=== PATIENT | female | born 1970 | race Hispanic/Latino ===

== ENCOUNTER 2016-10-24 14:25 | Observation (INO) | payer MEDICAID, OTHER ==
[2016-10-24 14:37] VITALS: BMI 23.0
[2016-10-24] MEDS ORDERED: Sodium Chloride 0.9% 1,000 ML IV STA (14:42)
--- NOTE | 2016-10-24 14:52 | ED PDOC ---
Arrival/HPI - General Historian: Patient - History of Present Illness Time/Duration: Other (since this morning) Context: Home - General Chief Complaint: GI Problem Time Seen by Provider: 10/24/16 14:42 - History of Present Illness Narrative History of Present Illness (Text): 10/24/16 14:49 This 46 yo female without significant medical history, presents to this ED c/o nausea, vomiting, diarrhea since this morning. Patient admits drinking green tea last night. Patient admits similar symptoms "years ago", after drinking green tea. Patient admits a generalized abdominal pain. Denies urinary symptoms, vaginal discharge, or vaginal bleeding. (Alannah Corrales) Past Medical History - Provider Review Nursing Documentation Reviewed: Yes - Infectious Disease Hx of Infectious Diseases: None - Tetanus Immunization Tetanus Immunization: Unknown - Past Medical History Past Medical History: No Previous - Psychiatric Hx Psychophysiologic Disorder: No Hx Anxiety: Yes Hx Bipolar Disorder: No Hx Depression: No Hx Emotional Abuse: No Hx Hallucinations: No Hx Panic Disorder: No Hx Post Traumatic Stress Disorder: No Hx Psychosis: No Hx Physical Abuse: No Hx Schizophrenia: No Hx Sexual Abuse: No Hx Substance Use: Yes (CANNABIS USE 10/23) Other/Comment: Prior ETOH abuse. - Surgical History Other/Comment: VAginal cyst surgery - Anesthesia Hx Anesthesia: Yes - Suicidal Assessment Feels Threatened In Home Enviroment: No Family/Social History - Physician Review Nursing Documentation Reviewed: Yes Family/Social History: No Known Family HX Smoking Status: Never Smoked Hx Alcohol Use: Yes (Stopped drinking 3 yrs ago) Hx Substance Use: Yes (CANNABIS USE 10/23) Hx Substance Use Treatment: No Allergies/Home Meds Allergies/Adverse Reactions: Allergies No Known Allergies Allergy (Verified 10/24/16 14:37) Home Medications: Home Meds Medication Instructions Recorded Confirmed No Known Home Med [No Known Home 09/08/14 09/08/14 Med] Review of Systems - Review of Systems Constitutional: Normal. absent: Fatigue, Weight Change, Fevers Eyes: Normal ENT: Normal Respiratory: Normal. absent: SOB, Cough Cardiovascular: Normal Gastrointestinal: Abdominal Pain, Diarrhea, Nausea, Vomiting Genitourinary Female: Normal. absent: Dysuria, Frequency, Hematuria, Vaginal Bleeding, Vaginal Discharge Musculoskeletal: Normal. absent: Back Pain Skin: Normal Neurological: Normal Endocrine: Normal Hemo/Lymphatic: Normal Psychiatric: Normal Physical Exam Temperature: Afebrile Blood Pressure: Normal Pulse: Regular Respiratory Rate: Normal Appearance: Positive for: Well-Appearing, Non-Toxic, Comfortable Pain Distress: None Mental Status: Positive for: Alert and Oriented X 3 - Systems Exam Head: Present: Atraumatic, Normocephalic Pupils: Present: PERRL Extroacular Muscles: Present: EOMI Conjunctiva: Present: Normal Mouth: Present: Moist Mucous Membranes Neck: Present: Normal Range of Motion Respiratory/Chest: Present: Clear to Auscultation, Good Air Exchange. No: Respiratory Distress, Accessory Muscle Use Cardiovascular: Present: Regular Rate and Rhythm, Normal S1, S2. No: Murmurs Abdomen: Present: Normal Bowel Sounds. No: Tenderness, Distention, Peritoneal Signs, Rebound, Guarding Back: Present: Normal Inspection. No: CVA Tenderness Upper Extremity: Present: Normal Inspection, Normal ROM, NORMAL PULSES, Neurovascularly Intact, Capillary Refill < 2s. No: Cyanosis, Edema Lower Extremity: Present: Normal Inspection, NORMAL PULSES, Deformity, Capillary Refill < 2 s. No: Edema, CALF TENDERNESS Neurological: Present: GCS=15, CN II-XII Intact, Speech Normal, Motor Func Grossly Intact, Normal Sensory Function, Normal Cerebellar Funct, Gait Normal Skin: Present: Warm, Dry, Normal Color. No: Rashes Psychiatric: Present: Alert, Oriented x 3, Normal Insight, Normal Concentration Vital Signs Temp Pulse Resp BP Pulse Ox 10/24/16 17:03 70 18 132/78 100 10/24/16 14:26 97.6 F 82 22 113/51 L 100 Medical Decision Making Re-evaluation Time: 17:51 Reassessment Condition: Re-examined, Improving,but remains with symptoms - Lab Interpretations I have reviewed the lab results: Yes Interpretation: Abnormal lab values (leukocytosis, cystitis?) ED Course and Treatment: I was available for consultation during PA evaluation. The chart was reviewed by me, and I agree with disposition. The documented history was done by the physician copy director. The documented physical exam was done by the physician copy director. The documented procedures were done by the physician copy director. ( Maciej Matute) 10/24/16 17:40 Patient stated she feel nauseous, and she feels chills. Patient stated she does not feel "right". I will contact hospitalist. 10/24/16 17:46 I spoke with electromedical equipment repairer regarding symptoms. He recommended to call Hospitalist. 10/24/16 17:[address] Perez Hospitalist, who agrees with plan for admission. ( Alannah Corrales) - Lab Interpretations Lab Results: 10/24/16 14:45 10/24/16 14:45 Lab Results 10/24/16 14:55: Urine Color Yellow, Urine Appearance Sl cloudy, Urine pH 8.0, Ur Specific [place] 1.025, Urine Protein 30 H, Urine Glucose (UA) Negative, Urine Ketones Trace H, Urine Blood Large H, Urine Nitrate Negative, Urine Bilirubin Negative, Urine Urobilinogen 0.2, Ur Leukocyte Esterase Negative, Urine RBC 5 - 10, Urine WBC 2 - 5, Ur Epithelial Cells Many, Urine Bacteria Mod , Urine HCG, Qual Negative 10/24/16 14:45: Sodium 135, Potassium 4.0, Chloride 103, Carbon Dioxide 18 L, Anion Gap 18, BUN 16, Creatinine 0.7, Est GFR ( Amer) > 60, Est GFR (Non- Af Amer) > 60, Random Glucose 111 H, Calcium 9.5, Total Bilirubin 0.5, AST 102 H , ALT 89 H, Alkaline Phosphatase 65, Total Protein 7.5, Albumin 4.6, Globulin 2.9, Albumin/Globulin Ratio 1.6, Lipase 96 10/24/16 14:45: WBC 16.8 H D, RBC 3.93, Hgb 12.8, Hct 37.0, MCV 94.1, MCH 32.6, MCHC 34.6, RDW 12.2, Plt Count 354, MPV 10.0, Gran % 88.6 H, Lymph % (Auto) 6.4 L, [place] % (Auto) 4.9, Eos % (Auto) 0.0 L, Baso % (Auto) 0.1, Gran # 14.87 H, Lymph # 1.1 L, [place] # 0.8 H, Eos # 0.0, Baso # 0.02 - RAD Interpretation Narrative RAD Interpretations (Text): 10/24/16 17:21 Accession No. : [id number] Patient Name / ID : ASHER SOW / [id number] Exam Date : 10/24/2016 16:31:39 ( Approved ) Study Comment : Sex / Age : F / 46Y Creator : Oz Edgar MD Dictator : Oz Edgar MD Portfolio Accountant : Ironer : Oz Edgar MD Approver2 : Report Date : 10/24/2016 17:05:50 My Comment : PROCEDURE: CT Abdomen and Pelvis with contrast HISTORY: Abdominal pain. By history, negative test (concurrent with this examination). COMPARISON: None. TECHNIQUE: Contrast dose: 100 cc Omnipaque 350. Radiation dose: Total exam DLP = 328.37 mGy-cm. This CT exam was performed using one or more of the following dose reduction techniques: Automated exposure control, adjustment of the mA and/or kV according to patient size, and/or use of iterative reconstruction technique. FINDINGS: LOWER THORAX: Unremarkable. LIVER: Hepatic steatosis. No focal masses. No intrahepatic bile duct dilatation or perihepatic ascites. There is periportal edema, nonspecific finding. GALLBLADDER AND BILE DUCTS: Cholelithiasis without CT evidence of acute cholecystitis. PANCREAS: Unremarkable. No gross lesion or ductal dilatation. SPLEEN: Unremarkable. ADRENALS: Unremarkable. No mass. KIDNEYS AND URETERS: Unremarkable. No hydronephrosis. No solid mass. VASCULATURE: Unremarkable. No aortic aneurysm. BOWEL: The colon is fluid-filled without mechanical obstruction. APPENDIX: Normal appendix. PERITONEUM: Trace free fluid identified in the pelvis/cul de sac.. No free air. LYMPH NODES: Unremarkable. No enlarged lymph nodes. BLADDER: Unremarkable. REPRODUCTIVE: Unremarkable. BONES: No acute fracture. OTHER FINDINGS: None. IMPRESSION: Cholelithiasis without CT evidence of acute cholecystitis. (Alannah Corrales) Radiology Orders: 10/24/16 15:28 ABD & PELVIS IV CONTRAST ONLY [CT] Stat - Medication Orders Current Medication Orders: Ondansetron HCl (Zofran Inj) 4 mg IVP STAT STA Stop: 10/24/16 17:46 Discontinued Medications Alprazolam (Xanax) 0.5 mg PO STAT STA PRN Reason: Protocol Stop: 10/24/16 15:24 Last Admin: 10/24/16 15:53 Dose: 0.5 mg Diphenhydramine HCl (Benadryl) 25 mg IVP STAT STA Stop: 10/24/16 17:36 Famotidine (Pepcid) 20 mg IVP STAT STA Stop: 10/24/16 14:49 Last Admin: 10/24/16 14:58 Dose: 20 mg Sodium Chloride (Sodium Chloride 0.9%) 1,000 mls @ 999 mls/hr IV .Q1H1M STA Stop: 10/24/16 15:42 Last Admin: 10/24/16 14:52 Dose: 999 mls/hr Iohexol (Omnipaque 350 100 Ml) Confirm Administered Dose 350 mg .ROUTE .STK-MED ONE Stop: 10/24/16 15:49 Metoclopramide HCl (Reglan) 10 mg IVP STAT STA Stop: 10/24/16 15:16 Last Admin: 10/24/16 15:33 Dose: 10 mg Ondansetron HCl (Zofran Inj) 4 mg IVP STAT STA Stop: 10/24/16 14:43 Last Admin: 10/24/16 14:58 Dose: 4 mg Disposition/Present on Arrival - Present on Arrival Any Indicators Present on Arrival: No History of DVT/PE: No History of Uncontrolled Diabetes: No Urinary Catheter: No History of Decub. Ulcer: No History Surgical Site Infection Following: None - Disposition Have Diagnosis and Disposition been Completed?: Yes Disposition Time: 17:52 Patient Plan: Admission - Disposition Diagnosis: Intractable vomiting with nausea, Abdominal pain Disposition: HOSPITALIZED Condition: GOOD Referrals: PCP,NO [Primary Care Provider] - Follow up with primary
[2016-10-24 14:53] LABS: ADD MANUAL DIFF? NO
[2016-10-24 14:56] LABS: BASO # 0.02 K/mm3 (0.0-2.0); BASO % 0.1 % (0.0-3.0); GRAN # 14.87 (1.4-6.5); GRAN % 88.6 % (50.0-68.0); LYMPH # 1.1 (1.2-3.4); LYMPH % 6.4 % (22.0-35.0); MEAN CELL VOLUME 94.1 fL (80.0-105.0); MEAN CORPUSCULAR HEMOGLOBIN 32.6 pg (25.0-35.0); MEAN CORPUSCULAR HGB CONC 34.6 g/dl (31.0-37.0); MONO # 0.8 (0.1-0.6); MONO % 4.9 % (1.0-6.0); PLATELET COUNT 354 10^3/uL (120.0-450.0); RED CELL DISTRIBUTION WIDTH 12.2 % (11.5-14.5); WHITE BLOOD COUNT 16.8 10^3/ul (4.5-11.0)
[2016-10-24 15:07] LABS: ALB/GLOB RATIO 1.6 (1.1-1.8); ALKALINE PHOSPHATASE 65 U/L (38-133); ALT/SGPT 89 U/L (7-56); AST/SGOT 102 U/L (15-39); BILIRUBIN,TOTAL 0.5 mg/dL (0.2-1.3); BLOOD UREA NITROGEN 16 mg/dL (7-21); CALCIUM 9.5 mg/dL (8.4-10.5); CARBON DIOXIDE 18 mmol/L (21-33); CHLORIDE 103 mmol/L (98-107); GFR AFRICAN-AMERICAN > 60; GLUCOSE,RANDOM 111 mg/dL (70-110); LIPASE 96 U/L (23-300); SODIUM 135 mmol/L (132-148); TOTAL PROTEIN 7.5 g/dL (5.8-8.3)
[2016-10-24 15:20] LABS: URINE BILIRUBIN NEGATIVE (NEGATIVE); URINE BLOOD LARGE (NEGATIVE); URINE GLUCOSE (UA) NEGATIVE (NEGATIVE); URINE KETONE TRACE mg/dL (NEGATIVE); URINE LEUKOCYTE ESTERASE NEGATIVE Leu/uL (NEGATIVE); URINE PROTEIN 30 mg/dL (<30 mg/dL); URINE UROBILINOGEN 0.2 E.U./dL (<1 E.U./dL)
[2016-10-24 15:25] LABS: URINE APPEARANCE SL CLOUDY (CLEAR); URINE COLOR YELLOW (YELLOW)
[2016-10-24 15:39] LABS: URINE BACTERIA MOD (NEG); URINE EPITHELIAL CELLS MANY /hpf (0-5)
[2016-10-24] MEDS ORDERED: Iohexol 350 MG/100 ML VIAL ONE (15:48)
--- NOTE | 2016-10-24 17:07 | CT ---
PROCEDURE: CT Abdomen and Pelvis with contrast HISTORY: Abdominal pain. By history, negative test (concurrent with this examination). COMPARISON: None. TECHNIQUE: Contrast dose: 100 cc Omnipaque 350. Radiation dose: Total exam DLP = 328.37 mGy-cm. This CT exam was performed using one or more of the following dose reduction techniques: Automated exposure control, adjustment of the mA and/or kV according to patient size, and/or use of iterative reconstruction technique. FINDINGS: LOWER THORAX: Unremarkable. LIVER: Hepatic steatosis. No focal masses. No intrahepatic bile duct dilatation or perihepatic ascites. There is periportal edema, nonspecific finding. GALLBLADDER AND BILE DUCTS: Cholelithiasis without CT evidence of acute cholecystitis. PANCREAS: Unremarkable. No gross lesion or ductal dilatation. SPLEEN: Unremarkable. ADRENALS: Unremarkable. No mass. KIDNEYS AND URETERS: Unremarkable. No hydronephrosis. No solid mass. VASCULATURE: Unremarkable. No aortic aneurysm. BOWEL: The colon is fluid-filled without mechanical obstruction. APPENDIX: Normal appendix. PERITONEUM: Trace free fluid identified in the pelvis/cul de sac.. No free air. LYMPH NODES: Unremarkable. No enlarged lymph nodes. BLADDER: Unremarkable. REPRODUCTIVE: Unremarkable. BONES: No acute fracture. OTHER FINDINGS: None. IMPRESSION: Cholelithiasis without CT evidence of acute cholecystitis.
[2016-10-24] MEDS ORDERED: DiphenhydrAMINE 50 mg/ml Inj IVP STA (17:35)
[2016-10-24] MEDS ORDERED: cefTRIAXone 1 gm 1 GM/100 ML BAG IVPB STA (17:50)
[2016-10-24] MEDS ORDERED: metroNIDAZOLE IV 500 mg/100 ml 500 MG/100 ML BAG IVPB STA (17:51)
--- NOTE | 2016-10-24 17:54 | CP.PCM.HP ---
<Pennie Murillo - Last Filed: 10/24/16 18:19> History of Present Illness - History of Present Illness History of Present Illness: Pt is a 46 F with PMHx of anxiety and etoh abuse presenting to [facility] ED with complaints of intractable nausea and vomitting. Pt attributes her current symptoms to the green tea that she drank yesterday. She states that she began drinking the green tea during the day and continued into the night her last cup being at approx 9pm. Pt awoke this morning had black coffee and then subsequently experienced loose bm and then began to feel nauseous and began vomitting. Pt states that she had approx 8-9 loose bm throughout the day today and similarly vomitted approx 8 -10 times. Her emesis went from clear to bilious in nature. She denied any bloody bm however she noted that she is currently on her period and has been spotting intermittently. Pt admits to chills, shoulder/chest discomfort (similar to the discomfort she experienced when she had panic attacks), n/v/d. She denied fever, sob, palpitations, abdominal pains, or urinary symptoms. PMHx: Anxiety, Etoh abuse PSHx: Tubal ligation, vaginal cyst removal SHx: denied tobacco use, quite etoh approx 2011, admits to marijuana use, last used on 10/23/16 Famhx: noncontributory Meds MAR reviewed Allergies: NKDA No PMD Present on Admission - Present on Admission Any Indicators Present on Admission: No Review of Systems - Review of Systems Review of Systems: as per HPI otherwise negative Past Patient History - Infectious Disease Hx of Infectious Diseases: None - Tetanus Immunizations Tetanus Immunization: Unknown - Past Social History Smoking Status: Never Smoked - PSYCHIATRIC Hx Psychophysiologic Disorder: No Hx Anxiety: Yes Hx Bipolar Disorder: No Hx Depression: No Hx Emotional Abuse: No Hx Hallucinations: No Hx Panic Symptoms: No Hx Post Traumatic Stress Disorder: No Hx Psychosis: No Hx Physical Abuse: No Hx Schizophrenia: No Hx Sexual Abuse: No Hx Substance Use: Yes (CANNABIS USE 10/23) Other/Comment: Prior ETOH abuse. - SURGICAL HISTORY Other/Comment: VAginal cyst surgery - ANESTHESIA Hx Anesthesia: Yes Meds Allergies/Adverse Reactions: Allergies Allergy/AdvReac Type Severity Reaction Status Date / Time No Known Allergies Allergy Verified 10/24/16 14:37 Physical Exam - Constitutional Appears: No Acute Distress - Head Exam Head Exam: ATRAUMATIC, NORMAL INSPECTION, NORMOCEPHALIC - Eye Exam Eye Exam: EOMI, Normal appearance, PERRL Pupil Exam: NORMAL ACCOMODATION, PERRL - ENT Exam ENT Exam: Mucous Membranes Moist, Normal Exam - Neck Exam Neck exam: Positive for: Normal Inspection - Respiratory Exam Respiratory Exam: Clear to Auscultation Bilateral, NORMAL BREATHING PATTERN - Cardiovascular Exam Cardiovascular Exam: REGULAR RHYTHM, +S1, +S2 - GI/Abdominal Exam GI & Abdominal Exam: Normal Bowel Sounds, Soft. absent: Tenderness - Extremities Exam Extremities exam: Positive for: normal inspection - Back Exam Back exam: NORMAL INSPECTION - Neurological Exam Neurological exam: Alert, CN II-XII Intact, Normal Gait, Oriented x3, Reflexes Normal - Psychiatric Exam Psychiatric exam: Normal Affect, Normal Mood - Skin Skin Exam: Dry, Intact, Normal Color, Warm Results - Vital Signs Recent Vital Signs: Last Vital Signs Temp 97.6 F 10/24/16 14:26 Pulse 70 10/24/16 17:03 Resp 18 10/24/16 17:03 BP 132/78 10/24/16 17:03 Pulse Ox 100 10/24/16 17:03 - Labs Result Diagrams: 10/24/16 14:45 10/24/16 14:45 Labs: Laboratory Results - last 24 hr 10/24/16 10/24/16 10/24/16 14:45 14:45 14:55 WBC 16.8 H D RBC 3.93 Hgb 12.8 Hct 37.0 MCV 94.1 MCH 32.6 MCHC 34.6 RDW 12.2 Plt Count 354 MPV 10.0 Gran % 88.6 H Lymph % (Auto) 6.4 L [place] % (Auto) 4.9 Eos % (Auto) 0.0 L Baso % (Auto) 0.1 Gran # 14.87 H Lymph # 1.1 L [place] # 0.8 H Eos # 0.0 Baso # 0.02 Sodium 135 Potassium 4.0 Chloride 103 Carbon Dioxide 18 L Anion Gap 18 BUN 16 Creatinine 0.7 Est GFR ( Amer) > 60 Est GFR (Non-Af Amer) > 60 Random Glucose 111 H Calcium 9.5 Total Bilirubin 0.5 AST 102 H ALT 89 H Alkaline Phosphatase 65 Total Protein 7.5 Albumin 4.6 Globulin 2.9 Albumin/Globulin Ratio 1.6 Lipase 96 Urine Color Yellow Urine Appearance Sl cloudy Urine pH 8.0 Ur Specific [place] 1.025 Urine Protein 30 H Urine Glucose (UA) Negative Urine Ketones Trace H Urine Blood Large H Urine Nitrate Negative Urine Bilirubin Negative Urine Urobilinogen 0.2 Ur Leukocyte Esterase Negative Urine RBC 5 - 10 Urine WBC 2 - 5 Ur Epithelial Cells Many Urine Bacteria Mod Urine HCG, Qual Negative Assessment & Plan - Assessment and Plan (Free Text) Assessment: Pt is a 46 F with PMHx of anxiety and etoh abuse presenting to [facility] ED with complaints of intractable nausea and vomitting admitted for possible gastroenteritis. 1. Intractable Nausea vomitting - CT abd unremarkable for any acute pathology - IVF - Zofran - Rocephin - Flagyl - Stool cx - NPO - Will observe and reassess, consult GI if necessary 2. Anxiety - ativan 0.5 iv q4 prn 3. Hx substance abuse - tox screen - ETOH levels 4. GI DVT ppx : Protonix and scds seen reviewed and discussed with attending <Manas Perez - Last Filed: 10/25/16 13:51> Results - Vital Signs Recent Vital Signs: Last Vital Signs Temp 99 F 10/25/16 07:30 Pulse 69 10/25/16 07:30 Resp 18 10/25/16 07:30 BP 128/84 10/25/16 07:30 Pulse Ox 99 10/25/16 07:30 - Labs Result Diagrams: 10/25/16 07:30 10/25/16 07:30 Labs: Laboratory Results - last 24 hr 10/24/16 10/25/16 10/25/16 19:00 07:30 07:30 WBC 16.6 H RBC 3.76 Hgb 12.3 Hct 35.3 L MCV 93.9 MCH 32.7 MCHC 34.8 RDW 12.5 Plt Count 329 MPV 10.1 Gran % 86.2 H Lymph % (Auto) 7.9 L [place] % (Auto) 5.8 Eos % (Auto) 0.0 L Baso % (Auto) 0.1 Gran # 14.33 H Lymph # 1.3 [place] # 1.0 H Eos # 0.0 Baso # 0.01 Sodium 134 Potassium 3.9 Chloride 101 Carbon Dioxide 21 Anion Gap 16 BUN 9 Creatinine 0.7 Est GFR ( Amer) > 60 Est GFR (Non-Af Amer) > 60 Random Glucose 118 H Calcium 9.0 Total Bilirubin 0.7 AST 42 H ALT 72 H Alkaline Phosphatase 50 Total Protein 7.1 Albumin 4.2 Globulin 2.8 Albumin/Globulin Ratio 1.5 Urine Opiates Screen Negative Urine Methadone Screen Negative Ur Barbiturates Screen Negative Ur Phencyclidine Scrn Negative Ur Amphetamines Screen Negative U Benzodiazepines Scrn Negative U Oth Cocaine Metabols Negative U Cannabinoids Screen Positive H Attending/Attestation - Attestation I have personally seen and examined this patient.: Yes I have fully participated in the care of the patient.: Yes I have reviewed all pertinent clinical information: Yes Notes (Text): 10/25/16 13:50 attending note; Patient seen and examined with resident in ER. Patient is a 46-year-old female admitted with severe nausea and vomiting and diarrhea. Admit to [facility] for acute gastroenteritis. Nothing by mouth, IV fluids. Stool studies ordered. Started on IV Rocephin and Flagyl. Monitor clinical status. past medical history includes anxiety and remote history of alcohol abuse. Currently denies any alcohol intake. Patient smokes marijuana. upon discharge patient will follow-up with [facility] clinic.
[2016-10-24] MEDS: Sodium Chloride 0.9% 1,000 ML IV SCH (18:49)
[2016-10-25] MEDS ORDERED: metroNIDAZOLE IV 250mg/50 ml 250 MG/50 ML BAG IVPB SCH (07:00)
--- NOTE | 2016-10-25 08:17 | CP.PCM.PN ---
<Pennie Murillo - Last Filed: 10/25/16 11:54> Subjective - Date & Time of Evaluation Date of Evaluation: 10/25/16 Time of Evaluation: 08:00 - Subjective Subjective: Pt was seen and examined at bedside. Pt still has complaints of nausea, however no longer is experiencing further episodes of diarrhea. Pt is anxious and hasn' t been able to sleep well and is experiencing intermittent chills. She had an episode of vomiting this morning of NBNB emesis. Pt also states that she is having her period with a normal flow. Pt denied fever, sob, chest pains, abdominal pains. Objective - Vital Signs/Intake and Output Vital Signs (last 24 hours): Temp Pulse Resp BP Pulse Ox 99 F 69 18 128/84 99 10/25/16 07:30 10/25/16 07:30 10/25/16 07:30 10/25/16 07:30 10/25/16 07:30 Intake and Output: 10/25/16 10/25/16 06:59 18:59 Intake Total 0 Balance 0 - Medications Medications: Current Medications Ceftriaxone Sodium (Rocephin 1 Gram Ivpb) 1 gm in 100 mls @ 100 mls/hr IVPB DAILY RADHA PRN Reason: Protocol Sodium Chloride (Sodium Chloride 0.9%) 1,000 mls @ 125 mls/hr IV .Q8H RADHA Last Admin: 10/24/16 18:49 Dose: 125 mls/hr Metronidazole (Flagyl) 500 mg in 100 mls @ 100 mls/hr IVPB Q8 RADHA PRN Reason: Protocol Lorazepam (Ativan) 0.5 mg IVP Q4H PRN; Protocol PRN Reason: Anxiety Last Admin: 10/24/16 23:25 Dose: 0.5 mg Ondansetron HCl (Zofran Inj) 4 mg IVP Q4H PRN PRN Reason: Nausea/Vomiting Last Admin: 10/25/16 05:47 Dose: 4 mg Pantoprazole Sodium (Protonix Inj) 40 mg IVP DAILY RADHA - Constitutional Appears: Non-toxic - Head Exam Head Exam: ATRAUMATIC, NORMAL INSPECTION, NORMOCEPHALIC - Eye Exam Eye Exam: EOMI, Normal appearance, PERRL Pupil Exam: NORMAL ACCOMODATION, PERRL - ENT Exam ENT Exam: Mucous Membranes Dry - Neck Exam Neck Exam: Full ROM, Normal Inspection. absent: Lymphadenopathy - Respiratory Exam Respiratory Exam: Clear to Ausculation Bilateral, NORMAL BREATHING PATTERN - Cardiovascular Exam Cardiovascular Exam: REGULAR RHYTHM, +S1, +S2. absent: Murmur - GI/Abdominal Exam GI & Abdominal Exam: Soft, Normal Bowel Sounds. absent: Tenderness - Extremities Exam Extremities Exam: Full ROM, Normal Capillary Refill, Normal Inspection. absent : Joint Swelling, Pedal Edema - Back Exam Back Exam: NORMAL INSPECTION - Neurological Exam Neurological Exam: Alert, Awake, CN II-XII Intact, Normal Gait, Oriented x3 - Psychiatric Exam Psychiatric exam: Anxious - Skin Skin Exam: Dry, Intact, Normal Color, Warm Assessment and Plan - Assessment and Plan (Free Text) Assessment: Pt is a 46 F with PMHx of anxiety and etoh abuse presenting to [facility] ED with complaints of intractable nausea and vomitting admitted for possible gastroenteritis. 1. Intractable Nausea vomitting - CT abd unremarkable for any acute pathology - IVF - Zofran - Rocephin - Flagyl - Stool cx - NPO, will advance to [facility] as tolerated - GI consulted, Dr. Mckinley 2. Transaminitis - ABD US - Hep panel - GI consulted 3. Anxiety - ativan 0.5 iv q4 prn 4. Hx substance abuse - tox screen + marijuana - ETOH level pending 5. GI DVT ppx : Protonix and scds seen reviewed and discussed with attending <Kurt ALEX,Sarah - Last Filed: 10/25/16 17:16> Objective - Vital Signs/Intake and Output Vital Signs (last 24 hours): Temp Pulse Resp BP Pulse Ox 98.8 F 55 L 20 140/85 100 10/25/16 14:00 10/25/16 14:00 10/25/16 14:00 10/25/16 14:00 10/25/16 14:00 Intake and Output: 10/25/16 10/25/16 06:59 18:59 Intake Total 0 360 Balance 0 360 - Medications Medications: Current Medications Al Hydrox/Mg Hydrox/Simethicone (Maalox Plus 30 Ml) 30 ml PO DAILY PRN PRN Reason: Indigestion / Heartburn Last Admin: 10/25/16 15:29 Dose: 30 ml Ceftriaxone Sodium (Rocephin 1 Gram Ivpb) 1 gm in 100 mls @ 100 mls/hr IVPB DAILY RADHA PRN Reason: Protocol Last Admin: 10/25/16 10:56 Dose: 100 mls/hr Sodium Chloride (Sodium Chloride 0.9%) 1,000 mls @ 125 mls/hr IV .Q8H RADHA Last Admin: 10/25/16 09:49 Dose: Not Given Metronidazole (Flagyl) 500 mg in 100 mls @ 100 mls/hr IVPB Q8 RADHA PRN Reason: Protocol Last Admin: 10/25/16 14:09 Dose: 100 mls/hr Lorazepam (Ativan) 0.5 mg IVP Q4H PRN; Protocol PRN Reason: Anxiety Last Admin: 10/25/16 15:31 Dose: 0.5 mg Ondansetron HCl (Zofran Inj) 4 mg IVP Q4H PRN PRN Reason: Nausea/Vomiting Last Admin: 10/25/16 14:08 Dose: 4 mg Pantoprazole Sodium (Protonix Inj) 40 mg IVP DAILY RADHA Last Admin: 10/25/16 09:34 Dose: 40 mg - Labs Labs: 10/25/16 07:30 10/25/16 07:30 Attending/Attestation - Attestation I have personally seen and examined this patient.: Yes I have fully participated in the care of the patient.: Yes I have reviewed all pertinent clinical information, including history, physical exam and plan: Yes Notes (Text): 10/25/16 17:10 Patient was seen and examined with medical center representative .Agreed with resident assessment and plan. Patient symptoms are likely due to viral gastroenteritis, diarrhea is completely resolved, still nauseated, will start on clear liquid diet and advance as tolerated. LFT are improving, no evidence of cholycystitis clinicaly, and on USG. Management plan was discussed in detail with patient Education was provided.
[2016-10-25 08:30] LABS: ADD MANUAL DIFF? NO
[2016-10-25 08:37] LABS: BASO # 0.01 K/mm3 (0.0-2.0); BASO % 0.1 % (0.0-3.0); GRAN # 14.33 (1.4-6.5); GRAN % 86.2 % (50.0-68.0); HEMATOCRIT 35.3 % (36.0-48.0); LYMPH # 1.3 (1.2-3.4); LYMPH % 7.9 % (22.0-35.0); MEAN CELL VOLUME 93.9 fL (80.0-105.0); MEAN CORPUSCULAR HEMOGLOBIN 32.7 pg (25.0-35.0); MEAN CORPUSCULAR HGB CONC 34.8 g/dl (31.0-37.0); MEAN PLATELET VOLUME 10.1 fl (7.0-11.0); MONO % 5.8 % (1.0-6.0); PLATELET COUNT 329 10^3/uL (120.0-450.0); RED CELL DISTRIBUTION WIDTH 12.5 % (11.5-14.5); WHITE BLOOD COUNT 16.6 10^3/ul (4.5-11.0)
[2016-10-25 08:47] LABS: ALB/GLOB RATIO 1.5 (1.1-1.8); ALKALINE PHOSPHATASE 50 U/L (38-133); ALT/SGPT 72 U/L (7-56); AST/SGOT 42 U/L (15-39); BILIRUBIN,TOTAL 0.7 mg/dL (0.2-1.3); BLOOD UREA NITROGEN 9 mg/dL (7-21); CARBON DIOXIDE 21 mmol/L (21-33); CHLORIDE 101 mmol/L (98-107); GFR AFRICAN-AMERICAN > 60; GLUCOSE,RANDOM 118 mg/dL (70-110); POTASSIUM 3.9 mmol/L (3.6-5.0); SODIUM 134 mmol/L (132-148); TOTAL PROTEIN 7.1 g/dL (5.8-8.3)
[2016-10-25] MEDS: metroNIDAZOLE IV 500 mg/100 ml 500 MG/100 ML BAG IVPB SCH ×3 (09:37→21:10)
[2016-10-25] MEDS: Sodium Chloride 0.9% 1,000 ML IV SCH ×3 (09:40→17:29)
[2016-10-25] MEDS: cefTRIAXone 1 gm 1 GM/100 ML BAG IVPB SCH (10:56)
--- NOTE | 2016-10-25 11:33 | US ---
HISTORY: ABNORMAL LFT COMPARISON: None. TECHNIQUE: Sonographic evaluation of the abdomen. FINDINGS: LIVER: Measures cm. Normal echogenicity of the liver parenchyma. No mass. No intrahepatic bile duct dilatation. GALLBLADDER: Cholelithiasis. COMMON BILE DUCT: Measures mm. No stones. No dilatation. PANCREAS: Unremarkable as visualized. No mass. No ductal dilatation. RIGHT KIDNEY: Measures cm. Normal echogenicity. No calculus, mass, or hydronephrosis. LEFT KIDNEY: Measures cm. Normal echogenicity. No calculus, mass, or hydronephrosis. SPLEEN: Normal in size and contour. No mass. AORTA: No aneurysmal dilatation. IVC: Unremarkable. OTHER FINDINGS: None. IMPRESSION: Cholelithiasis.
[2016-10-25] MEDS: Alum-Mag Hydrox-Simethicone Susp (30 mL) PO PRN (15:29)
--- NOTE | 2016-10-25 22:44 | CON ---
DATE: 10/25/2016 Seen and examined at the bedside this afternoon. The chart was reviewed and request for consult is f or intractable nausea and vomiting. HISTORY OF PRESENT ILLNESS: This is a 46-year-old female with a history of ETOH abuse and anxiety wh o came to the Emergency Room with complaints of intractable nausea and vomiting. The patient believe s that this started after drinking green tea that she had yesterday. The patient states that it was not her usual green tea that she has been drinking. The patient states that she drank a couple of cu ps of tea throughout the day. Yesterday she had a cup of black coffee and reported having a loose st ool, then became nauseous and began vomiting. The patient denies any hemetemesis. No complaints of any melena or bright red blood per rectum. Denies any shortness of breath, chest pain and no fever o r chills. Denies any weight loss or loss of appetite. The patient states that she stopped drinking alcohol 5 years ago. Has never had an endoscopy or colonoscopy. On admission, the patient had a CT scan of abdomen and pelvis and that reported cholelithiasis without evidence of acute cholecystitis. The colon is filled with fluid, but no mechanical obstruction. Noted to have fatty liver with no fo karen mass or intrahepatic bile duct dilatation. PAST MEDICAL HISTORY: As stated above, anxiety and ETOH abuse. Denies any cardiac or pulmonary prob lems. PAST SURGICAL HISTORY: Tubal ligation and vaginal cyst removal. FAMILY HISTORY: Noncontributory at this time. SOCIAL HISTORY: The patient denies tobacco use. History of ETOH, the patient states her last alcoho l intake was 5 years ago. The patient does use marijuana, last used on 10/23. The patient states she used marijuana to help her relax. MEDICATIONS: Reviewed as per JUL. REVIEW OF SYSTEMS: Systems reviewed with positive findings. See HPI. VITAL SIGNS: Temperature is 99, blood pressure is 128/84, pulse 69, respirations 18 and 99% on room air. LABORATORY DATA: WBC of 16.6, H and H is 12.3 and 35.3 and platelets are 329. Chem: Sodium 134, K is 3.9, BUN is 9, creatinine 0.9, total bilirubin is 0.7, AST 42, ALT 72, alk phos is 50 and lipase is 96. Urinalysis negative for leukocyte esterase. test is negative. Ketones. There is trac e large blood and positive protein. Toxicology positive for cannabinoids. She had hepatitis panel th at was negative. Abdominal ultrasound was done this morning and that was done for abnormal LFTs. She does have gallst ones. No stones in the bile duct or dilatation. Right and left kidney: No hydronephrosis, no mass o r stones. Spleen is normal. PHYSICAL EXAMINATION: HEENT: Sclerae is anicteric. NECK: Supple. CARDIAC: S1, S2. LUNGS: Sounds with decreased breath sounds, but no rales or wheeze. ABDOMEN: With bowel sounds, soft and nontender. No rebound or guarding. EXTREMITIES: Positive pedal pulses, but no edema. NEUROLOGIC: Awake, alert and oriented. ASSESSMENT: This is a 46-year-old female with a past medical history of anxiety and ethanol abuse wh o came to the Emergency Room with complaints of intractable nausea and vomiting. States that it coul d be related to her green tea, consider gastroenteritis. Other differential is gastritis. The patie nt did have abdominal ultrasound, found to have gallstones, but no common bile duct dilatation, found to have fatty liver and transaminitis. Hepatitis panel negative. Substance abuse, positive for cecile ricketts. PLAN: Continue to trend LFTs. The patient is on ceftriaxone and Flagyl. Continue GI prophylaxis. She is on Zofran. Alcohol level is pending. Continue clear liquid diet and advance as tolerated. W ill continue to follow the patient with no reports of any diarrhea now. The stool culture and fecal leukocytes are pending. Thank you for this consult and for allowing to participating in patient's care. We will make further recommendations based upon patient's clinical course. The patient was seen and case discussed with Dr. Mckinley. Consider endoscopy if patient's nausea and vomiting does not improve. Minerva ARMIJO cc: [id number] TT: 10/25/2016 22:43:35 Confirmation # [id number] Dictation # [id number]
[2016-10-26] MEDS: metroNIDAZOLE IV 500 mg/100 ml 500 MG/100 ML BAG IVPB SCH ×2 (05:41→14:07)
[2016-10-26 07:29] LABS: ADD MANUAL DIFF? NO
[2016-10-26 07:32] LABS: BASO # 0.02 K/mm3 (0.0-2.0); BASO % 0.2 % (0.0-3.0); EOS % 0.1 % (1.5-5.0); GRAN # 8.14 (1.4-6.5); LYMPH % 18.2 % (22.0-35.0); MEAN CELL VOLUME 94.7 fL (80.0-105.0); MEAN CORPUSCULAR HGB CONC 33.8 g/dl (31.0-37.0); MEAN PLATELET VOLUME 10.3 fl (7.0-11.0); MONO # 0.8 (0.1-0.6); MONO % 7.5 % (1.0-6.0); PLATELET COUNT 302 10^3/uL (120.0-450.0); RED CELL DISTRIBUTION WIDTH 12.6 % (11.5-14.5)
[2016-10-26 07:53] LABS: ALB/GLOB RATIO 1.4 (1.1-1.8); ALKALINE PHOSPHATASE 44 U/L (38-133); ALT/SGPT 79 U/L (7-56); AST/SGOT 61 U/L (15-39); BILIRUBIN,TOTAL 0.5 mg/dL (0.2-1.3); BLOOD UREA NITROGEN 11 mg/dL (7-21); CALCIUM 8.4 mg/dL (8.4-10.5); CARBON DIOXIDE 23 mmol/L (21-33); CHLORIDE 102 mmol/L (98-107); GFR AFRICAN-AMERICAN > 60; GLUCOSE,RANDOM 106 mg/dL (70-110); POTASSIUM 3.4 mmol/L (3.6-5.0); SODIUM 134 mmol/L (132-148); TOTAL PROTEIN 6.1 g/dL (5.8-8.3)
[2016-10-26] MEDS: Alum-Mag Hydrox-Simethicone Susp (30 mL) PO PRN (08:17)
--- NOTE | 2016-10-26 08:22 | CON ---
DATE: 10/25/2016 HISTORY OF PRESENT ILLNESS: This patient was seen and evaluated earlier. This 46-year-old patient p resented to the Emergency Room with complaints of episodes of nausea and vomiting and also has loose bowel movements. She said this started when she woke up in the morning. No bleeding per bleeding pe r rectum. No fever. Unable to keep anything down. Had a similar episode many years ago. She said that she said she was taking some green tea the previous day and feels that contributed. No family m embers with similar episode. PAST MEDICAL HISTORY: History of anxiety, ETOH abuse. SURGICAL HISTORY: Positive for tubal ligation, vaginal cyst removal. SOCIAL HISTORY: Denies smoking. Alcohol she quit about 5 years ago. Occasionally uses marijuana. FAMILY HISTORY: Noncontributory. ALLERGIES: No known drug allergies. REVIEW OF SYSTEMS: Positive as above. Other systems reviewed negative. PHYSICAL EXAMINATION: GENERAL: The patient is lying on the bed, not in acute distress. VITAL SIGNS: Temperature is 98.8, blood pressure is 140/85, pulse 55, respirations 20, O2 saturation 100%. HEENT: Atraumatic, anicteric. NECK: Supple. HEART: S1, S2 heard. LUNGS: Bilateral air entry present. ABDOMEN: Soft. There is some mild tenderness present at the epigastric area. There is no rebound o r guarding. EXTREMITIES: No edema. No cyanosis. LABORATORY DATA: Hemoglobin 12.3, hematocrit 35.3, WBC count is elevated to 16.6, platelets 329. Ch emistry is essentially unremarkable except mildly elevated AST and ALT. Toxicology screen positive f or ____ cannabinoids. The patient did have hepatitis serology done, which was negative. The patient had CAT scan of the abdomen and pelvis done with IV contrast, gallstones. Ultrasound scan of the ab domen CBD normal, gallstones, no wall thickening. IMPRESSION: This 46-year-old patient admitted with acute onset of diarrhea, vomiting and abdominal p ain. Most likely cause to be considered is acute gastroenteritis. 1. The patient does leukocytosis. 2. Cholelithiasis and the common bile duct normal, gallbladder wall normal. Incidental finding. RECOMMENDATIONS: 1. Continue the IV hydration. 2. Stool culture. 3. Agree with antibiotics. The patient is presently on ceftriaxone and Flagyl. We will continue th at. 4. Slowly advance the diet as tolerated. 5. Continue the PPI. We will continue to closely follow up her care and suggest further management based on the clinical c ourse. King Mckinley MD cc: [id number] TT: 10/26/2016 08:21:17 Confirmation # [id number] Dictation # [id number] jn
[2016-10-26] MEDS: cefTRIAXone 1 gm 1 GM/100 ML BAG IVPB SCH (09:15)
[2016-10-26 11:03] VITALS: RESP 18; TEMP 98
[2016-10-26 11:04] VITALS: BP 142/95; PULSE 70; O2SAT 97
--- NOTE | 2016-10-26 13:05 | CP.PCM.DIS ---
<Wang Chavarria - Last Filed: 10/26/16 12:54> Provider - Provider Date of Admission: 10/24/16 17:52 Attending physician: Sarah Hicks MD Primary care physician: NO PRIMARY CARE PROVIDER Consults: GI - Dr. Mckinley Time Spent in preparation of Discharge (in minutes): 35 Diagnosis - Discharge Diagnosis (1) Intractable vomiting with nausea Status: Acute Hospital Course - Lab Results Lab Results: Micro Results 10/24/16 18:00 Blood Blood Culture - Preliminary NO GROWTH AFTER 24 HOURS Most Recent Lab Values WBC 11.0 10^3/ul (4.5-11.0) D 10/26/16 07:00 RBC 3.59 10^6/uL (3.5-6.1) 10/26/16 07:00 Hgb 11.5 gm/dL (12.0-16.0) L 10/26/16 07:00 Hct 34.0 % (36.0-48.0) L 10/26/16 07:00 MCV 94.7 fL (80.0-105.0) 10/26/16 07:00 MCH 32.0 pg (25.0-35.0) 10/26/16 07:00 MCHC 33.8 g/dl (31.0-37.0) 10/26/16 07:00 RDW 12.6 % (11.5-14.5) 10/26/16 07:00 Plt Count 302 10^3/uL (120.0-450.0) 10/26/16 07:00 MPV 10.3 fl (7.0-11.0) 10/26/16 07:00 Gran % 74.0 % (50.0-68.0) H 10/26/16 07:00 Lymph % (Auto) 18.2 % (22.0-35.0) L 10/26/16 07:00 [place] % (Auto) 7.5 % (1.0-6.0) H 10/26/16 07:00 Eos % (Auto) 0.1 % (1.5-5.0) L 10/26/16 07:00 Baso % (Auto) 0.2 % (0.0-3.0) 10/26/16 07:00 Gran # 8.14 (1.4-6.5) H 10/26/16 07:00 Lymph # 2.0 (1.2-3.4) 10/26/16 07:00 [place] # 0.8 (0.1-0.6) H 10/26/16 07:00 Eos # 0.0 (0.0-0.7) 10/26/16 07:00 Baso # 0.02 K/mm3 (0.0-2.0) 10/26/16 07:00 Sodium 134 mmol/L (132-148) 10/26/16 07:00 Potassium 3.4 mmol/L (3.6-5.0) L 10/26/16 07:00 Chloride 102 mmol/L (98-107) 10/26/16 07:00 Carbon Dioxide 23 mmol/L (21-33) 10/26/16 07:00 Anion Gap 12 (10-20) 10/26/16 07:00 BUN 11 mg/dL (7-21) 10/26/16 07:00 Creatinine 0.7 mg/dL (0.5-1.4) 10/26/16 07:00 Est GFR ( Amer) > 60 10/26/16 07:00 Est GFR (Non-Af Amer) > 60 10/26/16 07:00 Random Glucose 106 mg/dL (70-110) 10/26/16 07:00 Calcium 8.4 mg/dL (8.4-10.5) 10/26/16 07:00 Total Bilirubin 0.5 mg/dL (0.2-1.3) 10/26/16 07:00 AST 61 U/L (15-39) H 10/26/16 07:00 ALT 79 U/L (7-56) H 10/26/16 07:00 Alkaline Phosphatase 44 U/L (38-133) 10/26/16 07:00 Total Protein 6.1 g/dL (5.8-8.3) 10/26/16 07:00 Albumin 3.6 g/dL (3.0-4.8) 10/26/16 07:00 Globulin 2.5 gm/dL 10/26/16 07:00 Albumin/Globulin Ratio 1.4 (1.1-1.8) 10/26/16 07:00 Lipase 96 U/L (23-300) 10/24/16 14:45 Urine Color Yellow (YELLOW) 10/24/16 14:55 Urine Appearance Sl cloudy (CLEAR) 10/24/16 14:55 Urine pH 8.0 (4.7-8.0) 10/24/16 14:55 Ur Specific [place] 1.025 (1.005-1.035) 10/24/16 14:55 Urine Protein 30 mg/dL (<30 mg/dL) H 10/24/16 14:55 Urine Glucose (UA) Negative mg/dL (NEGATIVE) 10/24/16 14:55 Urine Ketones Trace mg/dL (NEGATIVE) H 10/24/16 14:55 Urine Blood Large (NEGATIVE) H 10/24/16 14:55 Urine Nitrate Negative (NEGATIVE) 10/24/16 14:55 Urine Bilirubin Negative (NEGATIVE) 10/24/16 14:55 Urine Urobilinogen 0.2 E.U./dL (<1 E.U./dL) 10/24/16 14:55 Ur Leukocyte Esterase Negative Naren/uL (NEGATIVE) 10/24/16 14:55 Urine RBC 5 - 10 /hpf (0-2) 10/24/16 14:55 Urine WBC 2 - 5 /hpf (0-6) 10/24/16 14:55 Ur Epithelial Cells Many /hpf (0-5) 10/24/16 14:55 Urine Bacteria Mod (NEG) 10/24/16 14:55 Urine HCG, Qual Negative (NEGATIVE) 10/24/16 14:55 Urine Opiates Screen Negative (NEGATIVE) 10/24/16 19:00 Urine Methadone Screen Negative (NEGATIVE) 10/24/16 19:00 Ur Barbiturates Screen Negative (NEGATIVE) 10/24/16 19:00 Ur Phencyclidine Scrn Negative (NEGATIVE) 10/24/16 19:00 Ur Amphetamines Screen Negative (NEGATIVE) 10/24/16 19:00 U Benzodiazepines Scrn Negative (NEGATIVE) 10/24/16 19:00 U Oth Cocaine Metabols Negative (NEGATIVE) 10/24/16 19:00 U Cannabinoids Screen Positive (NEGATIVE) H 10/24/16 19:00 Hepatitis A IgM Ab Negative (NEGATIVE) 10/25/16 07:30 Hep Bs Antigen Negative (NEGATIVE) 10/25/16 07:30 Hep B Core IgM Ab Negative (NEGATIVE) 10/25/16 07:30 Hepatitis C Antibody Negative (NEGATIVE) 10/25/16 07:30 - Hospital Course Hospital Course: Pt is a 46 F with PMHx of anxiety and etoh abuse [place] [facility] with complaints of intractable nausea and vomitting. Pt attributes her current symptoms to the green tea that she drank prior to arrival. Pt states that she had approx 8-9 loose bm throughout the day today and similarly vomitted approx 8 -10 times. Her emesis went from clear to bilious in nature. She denied any bloody bm however she noted that she is currently on her period and has been spotting intermittently. Pt admits to chills, shoulder/chest discomfort ( similar to the discomfort she experienced when she had panic attacks), n/v/d. She denied fever, sob, palpitations, abdominal pains, or urinary symptoms. Patient was admitted for intractable nausea and vomiting as well as diarrhea. GI was consulted and determined the patient to be suffering from gastroenteritis. The patient was ultimately able to tolerate soft diet. She is discharged with Zofran 4mg q6 prn for nausea. She is given a referral for [facility] clinic for f/u. Discharge Exam - Head Exam Head Exam: ATRAUMATIC, NORMAL INSPECTION, NORMOCEPHALIC - Eye Exam Eye Exam: EOMI, PERRL - ENT Exam ENT Exam: Mucous Membranes Moist - Respiratory Exam Respiratory Exam: Clear to PA & Lateral, NORMAL BREATHING PATTERN. absent: Rales, Rhonchi, Wheezes - Cardiovascular Exam Cardiovascular Exam: REGULAR RHYTHM, +S1, +S2 - GI/Abdominal Exam GI & Abdominal Exam: Normal Bowel Sounds - Extremities Exam Extremities exam: full ROM, pedal pulses present - Neurological Exam Neurological exam: Alert, Oriented x3 - Psychiatric Exam Psychiatric exam: Normal Affect, Normal Mood - Skin Skin Exam: Dry, Warm Discharge Plan - Discharge Medications Prescriptions: Ondansetron ODT [Zofran ODT] 4 mg PO Q6H #30 odt - Follow Up Plan Condition: GOOD Disposition: HOME/ ROUTINE Instructions: Gastroenteritis (GEN) Additional Instructions: You are given a referral for our [facility] for a follow-up appointment. Please call and make an appointment as soon as possible. You are prescribed a medicine for nausea called Zofran. Take one tablet every 6hrs as needed for nausea. Referrals: [facility] [Outside] PCP,NO [Primary Care Provider] - <Kurt ALEX,Sarah - Last Filed: 10/26/16 13:45> Provider - Provider Date of Admission: 10/24/16 17:52 Attending physician: Sarah Hicks MD Primary care physician: NO PRIMARY CARE PROVIDER Hospital Course - Lab Results Lab Results: Micro Results 10/24/16 18:00 Blood Blood Culture - Preliminary NO GROWTH AFTER 24 HOURS Most Recent Lab Values WBC 11.0 10^3/ul (4.5-11.0) D 10/26/16 07:00 RBC 3.59 10^6/uL (3.5-6.1) 10/26/16 07:00 Hgb 11.5 gm/dL (12.0-16.0) L 10/26/16 07:00 Hct 34.0 % (36.0-48.0) L 10/26/16 07:00 MCV 94.7 fL (80.0-105.0) 10/26/16 07:00 MCH 32.0 pg (25.0-35.0) 10/26/16 07:00 MCHC 33.8 g/dl (31.0-37.0) 10/26/16 07:00 RDW 12.6 % (11.5-14.5) 10/26/16 07:00 Plt Count 302 10^3/uL (120.0-450.0) 10/26/16 07:00 MPV 10.3 fl (7.0-11.0) 10/26/16 07:00 Gran % 74.0 % (50.0-68.0) H 10/26/16 07:00 Lymph % (Auto) 18.2 % (22.0-35.0) L 10/26/16 07:00 [place] % (Auto) 7.5 % (1.0-6.0) H 10/26/16 07:00 Eos % (Auto) 0.1 % (1.5-5.0) L 10/26/16 07:00 Baso % (Auto) 0.2 % (0.0-3.0) 10/26/16 07:00 Gran # 8.14 (1.4-6.5) H 10/26/16 07:00 Lymph # 2.0 (1.2-3.4) 10/26/16 07:00 [place] # 0.8 (0.1-0.6) H 10/26/16 07:00 Eos # 0.0 (0.0-0.7) 10/26/16 07:00 Baso # 0.02 K/mm3 (0.0-2.0) 10/26/16 07:00 Sodium 134 mmol/L (132-148) 10/26/16 07:00 Potassium 3.4 mmol/L (3.6-5.0) L 10/26/16 07:00 Chloride 102 mmol/L (98-107) 10/26/16 07:00 Carbon Dioxide 23 mmol/L (21-33) 10/26/16 07:00 Anion Gap 12 (10-20) 10/26/16 07:00 BUN 11 mg/dL (7-21) 10/26/16 07:00 Creatinine 0.7 mg/dL (0.5-1.4) 10/26/16 07:00 Est GFR ( Amer) > 60 10/26/16 07:00 Est GFR (Non-Af Amer) > 60 10/26/16 07:00 Random Glucose 106 mg/dL (70-110) 10/26/16 07:00 Calcium 8.4 mg/dL (8.4-10.5) 10/26/16 07:00 Total Bilirubin 0.5 mg/dL (0.2-1.3) 10/26/16 07:00 AST 61 U/L (15-39) H 10/26/16 07:00 ALT 79 U/L (7-56) H 10/26/16 07:00 Alkaline Phosphatase 44 U/L (38-133) 10/26/16 07:00 Total Protein 6.1 g/dL (5.8-8.3) 10/26/16 07:00 Albumin 3.6 g/dL (3.0-4.8) 10/26/16 07:00 Globulin 2.5 gm/dL 10/26/16 07:00 Albumin/Globulin Ratio 1.4 (1.1-1.8) 10/26/16 07:00 Lipase 96 U/L (23-300) 10/24/16 14:45 Urine Color Yellow (YELLOW) 10/24/16 14:55 Urine Appearance Sl cloudy (CLEAR) 10/24/16 14:55 Urine pH 8.0 (4.7-8.0) 10/24/16 14:55 Ur Specific [place] 1.025 (1.005-1.035) 10/24/16 14:55 Urine Protein 30 mg/dL (<30 mg/dL) H 10/24/16 14:55 Urine Glucose (UA) Negative mg/dL (NEGATIVE) 10/24/16 14:55 Urine Ketones Trace mg/dL (NEGATIVE) H 10/24/16 14:55 Urine Blood Large (NEGATIVE) H 10/24/16 14:55 Urine Nitrate Negative (NEGATIVE) 10/24/16 14:55 Urine Bilirubin Negative (NEGATIVE) 10/24/16 14:55 Urine Urobilinogen 0.2 E.U./dL (<1 E.U./dL) 10/24/16 14:55 Ur Leukocyte Esterase Negative Naren/uL (NEGATIVE) 10/24/16 14:55 Urine RBC 5 - 10 /hpf (0-2) 10/24/16 14:55 Urine WBC 2 - 5 /hpf (0-6) 10/24/16 14:55 Ur Epithelial Cells Many /hpf (0-5) 10/24/16 14:55 Urine Bacteria Mod (NEG) 10/24/16 14:55 Urine HCG, Qual Negative (NEGATIVE) 10/24/16 14:55 Urine Opiates Screen Negative (NEGATIVE) 10/24/16 19:00 Urine Methadone Screen Negative (NEGATIVE) 10/24/16 19:00 Ur Barbiturates Screen Negative (NEGATIVE) 10/24/16 19:00 Ur Phencyclidine Scrn Negative (NEGATIVE) 10/24/16 19:00 Ur Amphetamines Screen Negative (NEGATIVE) 10/24/16 19:00 U Benzodiazepines Scrn Negative (NEGATIVE) 10/24/16 19:00 U Oth Cocaine Metabols Negative (NEGATIVE) 10/24/16 19:00 U Cannabinoids Screen Positive (NEGATIVE) H 10/24/16 19:00 Hepatitis A IgM Ab Negative (NEGATIVE) 10/25/16 07:30 Hep Bs Antigen Negative (NEGATIVE) 10/25/16 07:30 Hep B Core IgM Ab Negative (NEGATIVE) 10/25/16 07:30 Hepatitis C Antibody Negative (NEGATIVE) 10/25/16 07:30 Attending/Attestation - Attestation I have personally seen and examined this patient.: Yes I have fully participated in the care of the patient.: Yes I have reviewed all pertinent clinical information, including history, physical exam and plan: Yes Notes (Text): 10/26/16 13:42 Patient was seen and examined with medical record clerk .Agreed with resident assessment and plan. 46 F was admitted with diarrhea and vomiting.Symptoms are resolved in 24 hour, likely viral .Patient is still nauseated but but tolerating soft diet.Patient transaimase are improving.She will be discharged home and will follow [place] [facility]She will need repeat LFT in one week. Management plan was discussed in detail with patient Education was provided.
== END 2016-10-26 15:02 | disposition home or self-care (01) ==
LOC: ED 14:25 → ERH 17:52 → 5RNO 20:04
PROVIDERS: ADMIT Internal Medicine; ATTEND Internal Medicine
DX: A08.4 Viral intestinal infection, unspecified (principal); F12.90 Cannabis use, unspecified, uncomplicated; K76.0 Fatty (change of) liver, not elsewhere classified; K80.20 Calculus of gallbladder without cholecystitis without obstruction; N30.90 Cystitis, unspecified without hematuria; Z87.898 Personal history of other specified conditions; R40.2412 Glasgow coma scale score 13-15, at arrival to emergency department; D72.829 Elevated white blood cell count, unspecified; F41.9 Anxiety disorder, unspecified
CPT/HCPCS: 36415; 74177; 76700; 80053; 80074; 81001; 83690; 84703; 85025; 87040; 87045; 87086; 96361; 96365; 96366; 96367; 96375; 96376; 99285; C9113; G0378; G0480; J0696; J1200; J2060; J2405; J2765; J7040; Q9967